=== PATIENT | male | born 1945 | race Caucasian/White ===

== ENCOUNTER → 2017-01-29 | Outpatient (CLI) | payer OTHER ==
[2017-01-29 08:05] LABS: Basophils # (auto) 0.1 uL; Basophils % (auto) 0.7 % (0.0-2.0); Eosinophils # (auto) 0.2 uL; Eosinophils % (auto) 2.5 % (0.0-7.0); Hematocrit 42.3 % (41.0-53.0); Hemoglobin 14.1 g/dL (13.5-17.5); Lymphocytes # (auto) 1.8 uL; Lymphocytes % (auto) 21.8 % (10.0-50.0); Mean Corpuscular Hemoglobin 33.1 pg (28.0-32.0); Mean Corpuscular Hgb Conc. 33.4 g/dL (32.0-36.0); Mean Corpuscular Volume 99.2 fL (80.0-100.0); Monocytes # (auto) 0.8 uL; Monocytes % (auto) 9.3 % (0.0-12.0); Neutrophils # (auto) 5.3 uL; Neutrophils % (auto) 65.7 % (37.0-80.0); Platelet Count (auto) 173 10^3/uL (140-450); White Blood Cell 8.1 10^3/uL (4.4-10.8)
[2017-01-29 08:29] LABS: Albumin 3.5 g/dL (3.4-5.0); Bilirubin, Total 0.7 mg/dL (0.2-1.0); Calcium 9.9 mg/dL (8.5-10.1); Potassium 4.6 mmol/L (3.5-5.1); Total Protein 7.1 g/dL (6.4-8.2)
== END | disposition home or self-care (01) ==
LOC: LAB 07:46
PROVIDERS: ATTEND Internal Medicine Cardiovascular Disease
DX: I25.10 Atherosclerotic heart disease of native coronary artery without angina pectoris (principal); I10 Essential (primary) hypertension; E78.00 Pure hypercholesterolemia, unspecified; Z95.0 Presence of cardiac pacemaker; R60.9 Edema, unspecified; E78.5 Hyperlipidemia, unspecified; D69.8 Other specified hemorrhagic conditions; I48.2 Chronic atrial fibrillation; I35.1 Nonrheumatic aortic (valve) insufficiency; I27.2 Other secondary pulmonary hypertension
CPT/HCPCS: 36415; 80053; 80061; 80162; 83036; 85025

== ENCOUNTER → 2017-04-03 | Outpatient (CLI) | payer OTHER ==
[2017-04-03 11:05] LABS: B-Type Natriuretic Peptide 140.77 pg/mL (0-100)
[2017-04-03 11:07] LABS: Temperature: 23.5 C (20.0-25.0)
== END | disposition home or self-care (01) ==
LOC: LAB 09:44
PROVIDERS: ATTEND Internal Medicine Cardiovascular Disease
DX: I10 Essential (primary) hypertension (principal); I25.10 Atherosclerotic heart disease of native coronary artery without angina pectoris; E78.00 Pure hypercholesterolemia, unspecified; Z95.0 Presence of cardiac pacemaker; R60.9 Edema, unspecified; E87.5 Hyperkalemia; I27.2 Other secondary pulmonary hypertension; R06.02 Shortness of breath; R05 Cough
CPT/HCPCS: 83880

== ENCOUNTER → 2017-05-30 | Outpatient (CLI) | payer OTHER ==
[2017-05-30 09:39] LABS: Basophils # (auto) 0 uL; Basophils % (auto) 0.3 % (0.0-2.0); CONDITION Y; DEFINITIVE SEE PRINTOUT; Eosinophils # (auto) 0.3 uL; Eosinophils % (auto) 4.2 % (0.0-7.0); Hematocrit 22.2 % (41.0-53.0); Hemoglobin 7.3 g/dL (13.5-17.5); Lymphocytes # (auto) 1.2 uL; Lymphocytes % (auto) 14.4 % (10.0-50.0); Mean Corpuscular Hemoglobin 29.7 pg (28.0-32.0); Mean Corpuscular Hgb Conc. 32.7 g/dL (32.0-36.0); Mean Platelet Volume 8.1 fL (7.4-10.4); Monocytes # (auto) 0.9 uL; Neutrophils # (auto) 5.6 uL; Neutrophils % (auto) 70.1 % (37.0-80.0); Platelet Count (auto) 301 10^3/uL (140-450); Red Cell Distribution Width 19.4 % (11.6-16.0)
[2017-05-30 10:04] LABS: B-Type Natriuretic Peptide 311.42 pg/mL (0-100)
[2017-05-30 10:26] LABS: Albumin 2.5 g/dL (3.4-5.0); BUN/Creatinine Ratio 22.1; Bilirubin, Total 0.6 mg/dL (0.2-1.0); Calcium 8.6 mg/dL (8.5-10.1); Total Protein 7.2 g/dL (6.4-8.2)
[2017-05-30 10:31] LABS: Potassium 2.9 mmol/L (3.5-5.1)
[2017-05-30 10:50] LABS: Platelet Estimate Adequate
[2017-05-30 10:52] LABS: Anisocytosis Slight
== END | disposition home or self-care (01) ==
LOC: LAB 09:02
PROVIDERS: ATTEND Internal Medicine Cardiovascular Disease
DX: I25.10 Atherosclerotic heart disease of native coronary artery without angina pectoris (principal); I10 Essential (primary) hypertension; E78.5 Hyperlipidemia, unspecified; R60.9 Edema, unspecified
CPT/HCPCS: 36415; 80053; 83880; 85025

== ENCOUNTER → 2017-06-03 | Outpatient (CLI) | payer OTHER ==
[2017-06-03 10:52] LABS: Potassium 3.2 mmol/L (3.5-5.1)
[2017-06-03 10:56] LABS: BUN/Creatinine Ratio 25.2; Calcium 9.2 mg/dL (8.5-10.1)
== END | disposition home or self-care (01) ==
LOC: LAB 09:09
PROVIDERS: ATTEND Internal Medicine Cardiovascular Disease
DX: E87.8 Other disorders of electrolyte and fluid balance, not elsewhere classified (principal)
CPT/HCPCS: 36415; 80048

== ENCOUNTER → 2017-06-12 | Outpatient (CLI) | payer OTHER ==
[2017-06-12 10:21] LABS: Basophils # (auto) 0 uL; Basophils % (auto) 0.4 % (0.0-2.0); CONDITION Y; DEFINITIVE SEE PRINTOUT; Eosinophils # (auto) 0.2 uL; Eosinophils % (auto) 3.5 % (0.0-7.0); Hematocrit 24.4 % (41.0-53.0); Hemoglobin 7.7 g/dL (13.5-17.5); Lymphocytes # (auto) 0.8 uL; Mean Corpuscular Hemoglobin 31.2 pg (28.0-32.0); Mean Corpuscular Hgb Conc. 31.5 g/dL (32.0-36.0); Mean Corpuscular Volume 98.9 fL (80.0-100.0); Mean Platelet Volume 8.6 fL (7.4-10.4); Monocytes # (auto) 0.7 uL; Monocytes % (auto) 10.6 % (0.0-12.0); Neutrophils # (auto) 5.2 uL; Neutrophils % (auto) 73.5 % (37.0-80.0); Platelet Count (auto) 240 10^3/uL (140-450)
[2017-06-12 10:38] LABS: Red Cell Distribution Width 23.3 % (11.6-16.0)
[2017-06-12 10:51] LABS: BUN/Creatinine Ratio 18.7; Calcium 9.1 mg/dL (8.5-10.1); Potassium 3.4 mmol/L (3.5-5.1)
[2017-06-12 11:33] LABS: Anisocytosis Slight; Hypochromia Moderate; Platelet Estimate Adequate; Polychromasia Slight
== END | disposition home or self-care (01) ==
LOC: LAB 09:25
PROVIDERS: ATTEND Internal Medicine Cardiovascular Disease
DX: I25.10 Atherosclerotic heart disease of native coronary artery without angina pectoris (principal); I10 Essential (primary) hypertension; I35.1 Nonrheumatic aortic (valve) insufficiency; E78.00 Pure hypercholesterolemia, unspecified; E78.5 Hyperlipidemia, unspecified; D69.8 Other specified hemorrhagic conditions; K26.9 Duodenal ulcer, unspecified as acute or chronic, without hemorrhage or perforation; D64.9 Anemia, unspecified
CPT/HCPCS: 36415; 80048; 82728; 83540; 83550; 85025

== ENCOUNTER → 2017-06-27 | Outpatient (CLI) | payer OTHER ==
[2017-06-27 09:59] LABS: Basophils # (auto) 0.1 uL; CONDITION Y; DEFINITIVE SEE PRINTOUT; Eosinophils # (auto) 0.2 uL; Eosinophils % (auto) 4.4 % (0.0-7.0); Hematocrit 32.7 % (41.0-53.0); Hemoglobin 10.3 g/dL (13.5-17.5); Lymphocytes # (auto) 0.8 uL; Mean Corpuscular Hemoglobin 31.5 pg (28.0-32.0); Mean Corpuscular Hgb Conc. 31.5 g/dL (32.0-36.0); Mean Corpuscular Volume 100.1 fL (80.0-100.0); Mean Platelet Volume 7.7 fL (7.4-10.4); Monocytes # (auto) 0.7 uL; Monocytes % (auto) 12.2 % (0.0-12.0); Neutrophils # (auto) 3.8 uL; Neutrophils % (auto) 68.4 % (37.0-80.0); Platelet Count (auto) 213 10^3/uL (140-450); SUSPECT SEE PRINTOUT; White Blood Cell 5.6 10^3/uL (4.4-10.8)
[2017-06-27 10:09] LABS: Red Cell Distribution Width 20.1 % (11.6-16.0)
[2017-06-27 10:32] LABS: Albumin 3.2 g/dL (3.4-5.0); BUN/Creatinine Ratio 17.4; Bilirubin, Total 0.6 mg/dL (0.2-1.0); Calcium 9.2 mg/dL (8.5-10.1); Potassium 3.9 mmol/L (3.5-5.1); Total Protein 7.7 g/dL (6.4-8.2)
[2017-06-27 12:21] LABS: Anisocytosis Slight; Ovalocytes FEW; Platelet Estimate Adequate
== END | disposition home or self-care (01) ==
LOC: LAB 09:30
PROVIDERS: ATTEND Internal Medicine Cardiovascular Disease
DX: I35.1 Nonrheumatic aortic (valve) insufficiency (principal); I48.2 Chronic atrial fibrillation; I50.32 Chronic diastolic (congestive) heart failure; D69.8 Other specified hemorrhagic conditions; D64.9 Anemia, unspecified
CPT/HCPCS: 36415; 80053; 85025

== ENCOUNTER → 2017-07-12 | Outpatient (CLI) | payer OTHER ==
[2017-07-12 09:00] LABS: Basophils # (auto) 0.1 uL; Basophils % (auto) 1.5 % (0.0-2.0); Eosinophils # (auto) 0.2 uL; Eosinophils % (auto) 4.2 % (0.0-7.0); Hematocrit 39.5 % (41.0-53.0); Hemoglobin 12.9 g/dL (13.5-17.5); Lymphocytes % (auto) 17.1 % (10.0-50.0); Mean Corpuscular Hemoglobin 32.4 pg (28.0-32.0); Mean Corpuscular Hgb Conc. 32.6 g/dL (32.0-36.0); Mean Corpuscular Volume 99.4 fL (80.0-100.0); Monocytes # (auto) 0.7 uL; Monocytes % (auto) 12.1 % (0.0-12.0); Neutrophils # (auto) 3.7 uL; Neutrophils % (auto) 65.1 % (37.0-80.0); Nucleated Red Blood Cells % 0.1 %; Platelet Count (auto) 184 10^3/uL (140-450); Red Cell Distribution Width 16.7 % (11.8-14.3); White Blood Cell 5.7 10^3/uL (4.4-10.8)
[2017-07-12 09:23] LABS: B-Type Natriuretic Peptide 209.79 pg/mL (0-100)
[2017-07-12 09:29] LABS: INR 1.61 (0.9-1.15); Partial Thromboplastin Time 31.5 sec (22.64-33.71); Prothrombin Time 17.6 sec (9.37-12.3)
== END | disposition home or self-care (01) ==
LOC: LAB 08:08
PROVIDERS: ATTEND Internal Medicine Cardiovascular Disease
DX: I48.2 Chronic atrial fibrillation (principal)
CPT/HCPCS: 36415; 83880; 85025; 85610; 85730

== ENCOUNTER → 2017-07-23 | Outpatient (CLI) | payer OTHER ==
[2017-07-23 10:13] LABS: INR 2.52 (0.9-1.15); Prothrombin Time 27.7 sec (9.37-12.3)
== END | disposition home or self-care (01) ==
LOC: LAB 09:04
PROVIDERS: ATTEND Internal Medicine Cardiovascular Disease
DX: I48.2 Chronic atrial fibrillation (principal)
CPT/HCPCS: 36415; 85610

== ENCOUNTER → 2017-11-11 | Outpatient (CLI) | payer OTHER ==
[2017-11-11 11:13] LABS: Eosinophils # (auto) 0.3 uL; Eosinophils % (auto) 3.6 % (0.0-7.0); Hemoglobin 13.5 g/dL (13.5-17.5); Lymphocytes # (auto) 1.4 uL; Mean Corpuscular Hemoglobin 35.3 pg (28.0-32.0); Monocytes # (auto) 0.8 uL
[2017-11-11 11:15] LABS: Basophils # (auto) 0.1 uL; Basophils % (auto) 1.3 % (0.0-2.0); Hematocrit 39.6 % (41.0-53.0); Lymphocytes % (auto) 16.9 % (10.0-50.0); Mean Corpuscular Hgb Conc. 34.1 g/dL (32.0-36.0); Mean Corpuscular Volume 103.4 fL (80.0-100.0); Neutrophils # (auto) 5.6 uL; Neutrophils % (auto) 68.2 % (37.0-80.0); Nucleated Red Blood Cells % 0.3 %; Platelet Count (auto) 185 10^3/uL (140-450); Red Blood Cells 3.83 10^6/uL (4.5-5.90); Red Cell Distribution Width 17.2 % (11.8-14.3); White Blood Cell 8.2 10^3/uL (4.4-10.8)
[2017-11-11 11:37] LABS: Albumin 3.6 g/dL (3.4-5.0); BUN/Creatinine Ratio 17.4; Potassium 4.1 mmol/L (3.5-5.1); Total Protein 8.1 g/dL (6.4-8.2)
== END ==
LOC: LAB 10:11
PROVIDERS: ATTEND Internal Medicine Cardiovascular Disease
DX: I10 Essential (primary) hypertension (principal); I25.10 Atherosclerotic heart disease of native coronary artery without angina pectoris; E78.00 Pure hypercholesterolemia, unspecified; E78.5 Hyperlipidemia, unspecified; D69.8 Other specified hemorrhagic conditions; I48.2 Chronic atrial fibrillation
CPT/HCPCS: 36415; 80053; 80061; 83036; 85025

== ENCOUNTER → 2017-11-28 | Outpatient (CLI) | payer OTHER ==
[2017-11-28 10:36] LABS: BUN/Creatinine Ratio 17.9; Potassium 4.4 mmol/L (3.5-5.1)
[2017-11-28 10:37] LABS: Calcium 8.9 mg/dL (8.5-10.1); Uric Acid 10.1 mg/dL (3.5-7.2)
== END | disposition home or self-care (01) ==
LOC: LAB 09:43
PROVIDERS: ATTEND Internal Medicine Cardiovascular Disease
DX: I10 Essential (primary) hypertension (principal); I25.10 Atherosclerotic heart disease of native coronary artery without angina pectoris; E78.00 Pure hypercholesterolemia, unspecified; M10.9 Gout, unspecified; E78.5 Hyperlipidemia, unspecified
CPT/HCPCS: 36415; 80048; 83880; 84550

== ENCOUNTER → 2017-12-05 | Outpatient (CLI) | payer OTHER ==
[2017-12-05 12:17] LABS: BUN/Creatinine Ratio 16.7; Calcium 9.3 mg/dL (8.5-10.1); Potassium 4.6 mmol/L (3.5-5.1)
[2017-12-06 09:02] LABS: Uric Acid 8.4 mg/dL (3.5-7.2)
== END | disposition home or self-care (01) ==
LOC: LAB 11:32
PROVIDERS: ATTEND Internal Medicine Cardiovascular Disease
DX: I25.10 Atherosclerotic heart disease of native coronary artery without angina pectoris (principal); I10 Essential (primary) hypertension; E78.5 Hyperlipidemia, unspecified; D69.8 Other specified hemorrhagic conditions; R60.9 Edema, unspecified; R07.9 Chest pain, unspecified
CPT/HCPCS: 36415; 80048; 83880; 84550

== ENCOUNTER → 2017-12-20 | Outpatient (CLI) | payer OTHER ==
[2017-12-20 11:27] LABS: Calcium 8.9 mg/dL (8.5-10.1); Potassium 4.5 mmol/L (3.5-5.1); Uric Acid 6.5 mg/dL (3.5-7.2)
== END | disposition home or self-care (01) ==
LOC: LAB 10:15
PROVIDERS: ATTEND Internal Medicine Cardiovascular Disease
DX: I11.0 Hypertensive heart disease with heart failure (principal); I50.33 Acute on chronic diastolic (congestive) heart failure; I35.1 Nonrheumatic aortic (valve) insufficiency; I25.10 Atherosclerotic heart disease of native coronary artery without angina pectoris; E78.00 Pure hypercholesterolemia, unspecified; E87.5 Hyperkalemia; D69.8 Other specified hemorrhagic conditions; I48.2 Chronic atrial fibrillation; I27.20 Pulmonary hypertension, unspecified; I73.9 Peripheral vascular disease, unspecified; D64.9 Anemia, unspecified; K26.9 Duodenal ulcer, unspecified as acute or chronic, without hemorrhage or perforation; M10.9 Gout, unspecified; R60.9 Edema, unspecified
CPT/HCPCS: 36415; 80048; 83880; 84550

== ENCOUNTER 2018-03-11 22:31 | Inpatient (IN) | payer OTHER ==
[~2018-03-11] VITALS: Ht 180.3 cm; Wt 90.9 kg
[2018-03-11] MEDS ORDERED: IPRATROPIUM BROM 0.5 MG/2.5ML INH SOL NEB ONE (23:00)
[2018-03-11] MEDS ORDERED: MORPHINE SULFATE 4 MG/ML SYR/VIAL IV ONE (23:00)
[2018-03-11] MEDS ORDERED: methylPREDNISolone SOD SUCC 125 MG/2 ML VL IV ONE (23:00)
[2018-03-11] MEDS ORDERED: ALBUTEROL SULF 2.5 MG/0.5ML(0.5%) NEB SOLN NEB ONE (23:00)
[2018-03-11] MEDS ORDERED: ONDANSETRON HCL 4 MG/2 ML VIAL IV ONE (23:00)
[2018-03-11 23:17] LABS: Basophils # (auto) 0.1 uL; Basophils % (auto) 0.8 % (0.0-2.0); Eosinophils # (auto) 0 uL; Hematocrit 41.6 % (41.0-53.0); Hemoglobin 14.2 g/dL (13.5-17.5); Lymphocytes % (auto) 6.6 % (10.0-50.0); Mean Corpuscular Hgb Conc. 34.1 g/dL (32.0-36.0); Mean Corpuscular Volume 96.9 fL (80.0-100.0); Monocytes # (auto) 1.3 uL; Monocytes % (auto) 8.5 % (0.0-12.0); Neutrophils # (auto) 12.5 uL; Neutrophils % (auto) 84.1 % (37.0-80.0); Platelet Count (auto) 147 10^3/uL (140-450); Red Blood Cells 4.29 10^6/uL (4.5-5.90); Red Cell Distribution Width 17.6 % (11.8-14.3); White Blood Cell 14.8 10^3/uL (4.4-10.8)
[2018-03-11 23:31] LABS: INR 1.42 (0.9-1.15); Partial Thromboplastin Time 33.5 sec (23.78-33.04); Prothrombin Time 14.9 sec (9.27-12.13)
[2018-03-12] MEDS ORDERED: MORPHINE SULFATE INJECTION 1 ML ONE
[2018-03-12 00:04] LABS: Albumin 2.8 g/dL (3.4-5.0); BUN/Creatinine Ratio 23.2; Calcium 8.6 mg/dL (8.5-10.1); Magnesium 1.8 mg/dL (1.6-2.6); Potassium 3.5 mmol/L (3.5-5.1)
[2018-03-12 00:09] LABS: Bilirubin, Total 1.9 mg/dL (0.2-1.0); Total Protein 7.5 g/dL (6.4-8.2)
[2018-03-12 01:37] LABS: Urine Bacteria NONE SEEN /hpf (None Seen); Urine Blood 2+ /uL (Negative); Urine Hyaline Cast FEW /lpf (0 - 2); Urine Mucus FEW (None Seen); Urine Specific Gravity 1.016 (1.001-1.035); Urine WBC 7 /hpf (0 - 3)
[2018-03-12] MEDS ORDERED: PIPERACILLIN-TAZO 4.5GM 100 ML IV ONE (04:00)
[2018-03-12] MEDS ORDERED: NITROGLYCERIN 0.4 MG SL TAB SL PRN (06:00)
[2018-03-12] MEDS ORDERED: cloNIDine HCL 0.1 MG TAB PO PRN (06:00)
[2018-03-12] MEDS ORDERED: MORPHINE SULFATE 4 MG/ML SYR/VIAL IV PRN (06:00)
[2018-03-12] MEDS ORDERED: DEXTROSE (50%) 50ML SYRG IV PRN (06:00)
[2018-03-12] MEDS ORDERED: IPRATROPIUM BROM 0.5 MG/2.5ML INH SOL NEB PRN (06:00)
[2018-03-12] MEDS ORDERED: ONDANSETRON HCL 4 MG/2 ML VIAL IV PRN (06:00)
[2018-03-12] MEDS: ACCU-CHEK COMFORT CURVE STRIP VI SCH ×3 (06:00→17:37)
[2018-03-12] MEDS ORDERED: ALBUTEROL SULF 2.5 MG/0.5ML(0.5%) NEB SOLN NEB PRN (06:00)
[2018-03-12] MEDS ORDERED: ACETAMINOPHEN 325 MG TAB PO PRN (06:00)
[2018-03-12] MEDS ORDERED: TEMAZEPAM 15 MG CAP PO PRN (06:00)
[2018-03-12] MEDS: InsuLIN REG 1unit/0.01ml Soln (100units/ml) SC SCH ×3 (06:00→17:36)
[2018-03-12] MEDS ORDERED: HYDROcodone-ACET 5/325MG TAB PO PRN (06:00)
[2018-03-12 06:30] VITALS: BP 116/77
[2018-03-12] MEDS ORDERED: AZITHROMYCIN 500MG/ 250ML 250 ML IV ONE (06:30)
[2018-03-12] MEDS ORDERED: cefTRIAXone 1GM/10ml IVPUSH 10 ML IV ONE (06:30)
[2018-03-12] MEDS: SODIUM CHLORIDE 0.9% 1,000 ML IV SCH ×2 (07:00→22:30)
[2018-03-12 08:27] VITALS: BP 116/70
[2018-03-12 08:45] VITALS: BP 116/70
[2018-03-12] MEDS: PANTOPRAZOLE 40 MG TAB PO SCH (09:25)
[2018-03-12] MEDS: METOPROLOL TARTRATE 25 MG TAB PO SCH ×2 (09:26→22:29)
[2018-03-12] MEDS ORDERED: ASPirin 81 mg TAB PO SCH (10:00)
[2018-03-12] MEDS ORDERED: ENOXAPARIN SOD 40 MG/0.4 ML SYRINGE SC SCH (10:00)
[2018-03-12] MEDS ORDERED: APIXABAN 5 MG TAB PO SCH (10:00)
[2018-03-12] MEDS ORDERED: FEBU40TA PO (10:51)
[2018-03-12] MEDS ORDERED: WARF4TAB33 PO (10:51)
[2018-03-12] MEDS ORDERED: CARV6.2551 PO (10:51)
[2018-03-12] MEDS ORDERED: SIMV-8 PO (10:51)
[2018-03-12] MEDS ORDERED: ACE3T PO (10:51)
[2018-03-12] MEDS ORDERED: POTA20TA53 PO (10:51)
[2018-03-12] MEDS ORDERED: BUME1TAB PO (10:51)
[2018-03-12] MEDS ORDERED: IPRAAER6 IN (10:51)
[2018-03-12] MEDS ORDERED: FLUT1AER3 IN (10:51)
[2018-03-12] MEDS ORDERED: METO2.5T11 PO (10:51)
[2018-03-12] MEDS ORDERED: PANT40TA2 PO (10:51)
[2018-03-12 13:00] VITALS: BP 93/61
[2018-03-12 14:07] LABS: Calcium 8.6 mg/dL (8.5-10.1)
[2018-03-12 14:09] LABS: Potassium 2.9 mmol/L (3.5-5.1)
[2018-03-12] MEDS ORDERED: POTASSIUM CHL 20 Meq TABLET PO ONE (14:15)
[2018-03-12 16:11] LABS: Carcinoembryonic Antigen 1.32 ng/mL (<5.0 OR =); Prostate Specific Antigen 0.31 ng/mL (0.0-4.0)
[2018-03-12] MEDS ORDERED: WARFARIN SODIUM 5 MG TAB PO ONE (17:00)
[2018-03-12] MEDS ORDERED: BACL10TA PO (17:05)
[2018-03-12] MEDS ORDERED: TEMA30CA PO (17:05)
[2018-03-12 17:08] VITALS: BP 112/64
[2018-03-12 22:00] VITALS: BP 112/72
[2018-03-12] MEDS: ATORVASTATIN 20 MG TAB PO SCH (22:28)
[2018-03-13] MEDS: InsuLIN REG 1unit/0.01ml Soln (100units/ml) SC SCH ×4 (00:35→17:39)
[2018-03-13] MEDS: ACCU-CHEK COMFORT CURVE STRIP VI SCH ×4 (00:35→17:39)
[2018-03-13 05:00] VITALS: BP 97/57
[2018-03-13 06:44] LABS: Basophils # (auto) 0 uL; Basophils % (auto) 0.1 % (0.0-2.0); Eosinophils # (auto) 0 uL; Hematocrit 37.3 % (41.0-53.0); Hemoglobin 12.7 g/dL (13.5-17.5); Lymphocytes # (auto) 0.3 uL; Lymphocytes % (auto) 2.3 % (10.0-50.0); Mean Corpuscular Hemoglobin 33.4 pg (28.0-32.0); Mean Corpuscular Hgb Conc. 33.9 g/dL (32.0-36.0); Mean Corpuscular Volume 98.3 fL (80.0-100.0); Monocytes # (auto) 0.5 uL; Monocytes % (auto) 3.9 % (0.0-12.0); Neutrophils # (auto) 12.1 uL; Neutrophils % (auto) 93.7 % (37.0-80.0); Platelet Count (auto) 121 10^3/uL (140-450); Red Cell Distribution Width 17.4 % (11.8-14.3); White Blood Cell 12.9 10^3/uL (4.4-10.8)
[2018-03-13 06:56] LABS: INR 1.55 (0.9-1.15); Prothrombin Time 16.2 sec (9.27-12.13)
[2018-03-13 07:03] LABS: Potassium 3.5 mmol/L (3.5-5.1)
[2018-03-13 07:08] LABS: Albumin 2.4 g/dL (3.4-5.0); BUN/Creatinine Ratio 34.5; Calcium 9.1 mg/dL (8.5-10.1)
[2018-03-13 07:10] LABS: Bilirubin, Total 1.3 mg/dL (0.2-1.0); Total Protein 7.1 g/dL (6.4-8.2)
[2018-03-13 09:00] VITALS: BP 113/70
[2018-03-13] MEDS: cefTRIAXone 1GM/10ml IVPUSH 10 ML IV SCH (09:18)
[2018-03-13] MEDS: AZITHROMYCIN 500MG/ 250ML 250 ML IV SCH (09:18)
[2018-03-13] MEDS: ASPirin 81 mg TAB PO SCH (09:36)
[2018-03-13] MEDS: PANTOPRAZOLE 40 MG TAB PO SCH (09:37)
[2018-03-13] MEDS: METOPROLOL TARTRATE 25 MG TAB PO SCH ×2 (10:00→22:14)
[2018-03-13] MEDS: ACETYLCYSTEINE 10 %(100MG/ML) SOL 4ML NEB SCH ×2 (12:25→20:06)
[2018-03-13] MEDS: IPRATROPIUM BROM 0.5 MG/2.5ML INH SOL NEB SCH ×2 (12:25→20:06)
[2018-03-13] MEDS: ALBUTEROL SULF 2.5 MG/0.5ML(0.5%) NEB SOLN NEB SCH ×2 (12:25→20:06)
[2018-03-13 13:00] VITALS: BP 127/76
[2018-03-13 17:00] VITALS: BP 114/67
[2018-03-13] MEDS ORDERED: WARFARIN SODIUM 5 MG TAB PO ONE (17:00)
[2018-03-13] MEDS: ATORVASTATIN 20 MG TAB PO SCH (22:14)
[2018-03-14] MEDS: ACCU-CHEK COMFORT CURVE STRIP VI SCH ×2 (00:32→06:25)
[2018-03-14] MEDS: ALBUTEROL SULF 2.5 MG/0.5ML(0.5%) NEB SOLN NEB SCH ×2 (01:30→07:03)
[2018-03-14] MEDS: IPRATROPIUM BROM 0.5 MG/2.5ML INH SOL NEB SCH ×2 (01:30→07:03)
[2018-03-14 05:00] VITALS: BP 114/76
[2018-03-14] MEDS: InsuLIN REG 1unit/0.01ml Soln (100units/ml) SC SCH ×2 (06:00)
[2018-03-14 06:04] LABS: INR 2.16 (0.9-1.15); Partial Thromboplastin Time 32.3 sec (23.78-33.04); Prothrombin Time 22.1 sec (9.27-12.13)
[2018-03-14 06:06] LABS: Basophils # (auto) 0 uL; Basophils % (auto) 0.1 % (0.0-2.0); Eosinophils # (auto) 0 uL; Hematocrit 35.7 % (41.0-53.0); Hemoglobin 12.3 g/dL (13.5-17.5); Lymphocytes # (auto) 0.5 uL; Lymphocytes % (auto) 5.6 % (10.0-50.0); Mean Corpuscular Hemoglobin 33.7 pg (28.0-32.0); Mean Corpuscular Hgb Conc. 34.5 g/dL (32.0-36.0); Mean Corpuscular Volume 97.7 fL (80.0-100.0); Monocytes # (auto) 0.5 uL; Monocytes % (auto) 6.4 % (0.0-12.0); Neutrophils # (auto) 7.5 uL; Neutrophils % (auto) 87.9 % (37.0-80.0); Nucleated Red Blood Cells % 0.1 %; Platelet Count (auto) 116 10^3/uL (140-450); Red Blood Cells 3.65 10^6/uL (4.5-5.90); Red Cell Distribution Width 17.2 % (11.8-14.3); White Blood Cell 8.5 10^3/uL (4.4-10.8)
[2018-03-14 06:09] LABS: BUN/Creatinine Ratio 36.9; Potassium 3.7 mmol/L (3.5-5.1)
[2018-03-14] MEDS: ACETYLCYSTEINE 10 %(100MG/ML) SOL 4ML NEB SCH (07:03)
[2018-03-14 09:00] VITALS: BP 121/72
[2018-03-14] MEDS: AZITHROMYCIN 500MG/ 250ML 250 ML IV SCH (09:45)
[2018-03-14] MEDS: cefTRIAXone 1GM/10ml IVPUSH 10 ML IV SCH (09:45)
[2018-03-14] MEDS: ASPirin 81 mg TAB PO SCH (09:45)
[2018-03-14] MEDS: PANTOPRAZOLE 40 MG TAB PO SCH (09:46)
[2018-03-14] MEDS: METOPROLOL TARTRATE 25 MG TAB PO SCH (09:46)
[2018-03-14 10:44] VITALS: BP 121/72
[2018-03-14] MEDS ORDERED: WARFARIN SODIUM 2 MG TAB PO ONE (17:00)
== END 2018-03-14 12:00 | disposition home or self-care (01) | DRG 193 ==
LOC: EDBD 22:31 → ER 22:39 → TELE 22:40 → TELE-EAST 03-12 08:25
PROVIDERS: ADMIT Nurse Practitioner; ATTEND Family Medicine
DX: J18.1 Lobar pneumonia, unspecified organism (principal); J96.00 Acute respiratory failure, unspecified whether with hypoxia or hypercapnia; J44.0 Chronic obstructive pulmonary disease with (acute) lower respiratory infection; D68.59 Other primary thrombophilia; N39.0 Urinary tract infection, site not specified; E11.22 Type 2 diabetes mellitus with diabetic chronic kidney disease; I48.2 Chronic atrial fibrillation; N18.3 Chronic kidney disease, stage 3 (moderate); E78.5 Hyperlipidemia, unspecified; I25.10 Atherosclerotic heart disease of native coronary artery without angina pectoris; I12.9 Hypertensive chronic kidney disease with stage 1 through stage 4 chronic kidney disease, or unspecified chronic kidney disease; M54.5 Low back pain; G89.29 Other chronic pain; K76.0 Fatty (change of) liver, not elsewhere classified; Z95.1 Presence of aortocoronary bypass graft
CPT/HCPCS: 36415; 71045; 71046; 74176; 76705; 80048; 80053; 81001; 82378; 82962; 83036; 83605; 83735; 83880; 84153; 84484; 85025; 85610; 85730; 87040; 93005; 93306; 94640; 94761; 96365; 96367; 96375; 99291; J1815; J2270; J2405; J2543

== ENCOUNTER → 2018-07-29 | Outpatient (CLI) | payer OTHER ==
[~2018-07-29] MED LIST: ACE3T PO; BACL10TA PO; BUME1TAB PO; CARV6.2551 PO; FEBU40TA PO; FLUT1AER3 IN; IPRAAER6 IN; METO2.5T11 PO; PANT40TA2 PO; POTA20TA53 PO; SIMV-8 PO; TEMA30CA PO; WARF4TAB33 PO
[2018-07-29 10:44] LABS: Basophils # (auto) 0.1 uL; Basophils % (auto) 1.2 % (0.0-2.0); Eosinophils # (auto) 0.2 uL; Eosinophils % (auto) 3.3 % (0.0-7.0); Hematocrit 40.3 % (41.0-53.0); Hemoglobin 13.4 g/dL (13.5-17.5); Lymphocytes % (auto) 17.4 % (10.0-50.0); Mean Corpuscular Hemoglobin 32.4 pg (28.0-32.0); Mean Corpuscular Hgb Conc. 33.3 g/dL (32.0-36.0); Mean Corpuscular Volume 97.3 fL (80.0-100.0); Monocytes # (auto) 0.6 uL; Monocytes % (auto) 10.1 % (0.0-12.0); Nucleated Red Blood Cells % 0.1 %; Platelet Count (auto) 120 10^3/uL (140-450); Red Blood Cells 4.14 10^6/uL (4.5-5.90); Red Cell Distribution Width 17.5 % (11.8-14.3); White Blood Cell 5.9 10^3/uL (4.4-10.8)
[2018-07-29 12:16] LABS: BUN/Creatinine Ratio 18.5; Calcium 8.8 mg/dL (8.5-10.1); Potassium 4.7 mmol/L (3.5-5.1)
== END | disposition home or self-care (01) ==
LOC: LAB 09:56
PROVIDERS: ATTEND Internal Medicine Cardiovascular Disease
DX: I10 Essential (primary) hypertension (principal); I25.10 Atherosclerotic heart disease of native coronary artery without angina pectoris; D64.9 Anemia, unspecified; E87.5 Hyperkalemia
CPT/HCPCS: 36415; 80048; 85025

== ENCOUNTER → 2018-11-14 | Outpatient (CLI) | payer OTHER ==
[2018-11-14 10:14] LABS: Basophils # (auto) 0.1 uL; Basophils % (auto) 2.3 % (0.0-2.0); Eosinophils # (auto) 0.2 uL; Eosinophils % (auto) 3.4 % (0.0-7.0); Hematocrit 44.9 % (41.0-53.0); Hemoglobin 15.2 g/dL (13.5-17.5); Lymphocytes # (auto) 1.1 uL; Lymphocytes % (auto) 19.5 % (10.0-50.0); Mean Corpuscular Hemoglobin 33.1 pg (28.0-32.0); Mean Corpuscular Hgb Conc. 33.8 g/dL (32.0-36.0); Monocytes # (auto) 0.6 uL; Monocytes % (auto) 10.2 % (0.0-12.0); Neutrophils # (auto) 3.6 uL; Neutrophils % (auto) 64.6 % (37.0-80.0); Nucleated Red Blood Cells % 0.1 %; Platelet Count (auto) 131 10^3/uL (140-450); Red Blood Cells 4.58 10^6/uL (4.5-5.90); Red Cell Distribution Width 16.5 % (11.8-14.3); White Blood Cell 5.6 10^3/uL (4.4-10.8)
[2018-11-14 11:12] LABS: Alanine Aminotransferase 20 U/L (16-61); Albumin 3.9 g/dL (3.4-5.0); Anion Gap 3 (5-15); Aspartate Aminotransferase 24 U/L (15-37); BUN/Creatinine Ratio 15.8; Blood Urea Nitrogen 22 mg/dL (7-18); Calcium 9.4 mg/dL (8.5-10.1); Carbon Dioxide 31 mmol/L (21-32); Chloride 107 mmol/L (98-107); GFR Non-African American 53 mL/min; Glucose 113 mg/dL (74-106); Potassium 4.9 mmol/L (3.5-5.1); Sodium 141 mmol/L (136-145)
[2018-11-14 11:16] LABS: Alkaline Phosphatase 139 U/L (45-117); Bilirubin, Total 1.2 mg/dL (0.2-1.0); Cholesterol 130 mg/dL (< 200); HDL Cholesterol 41 mg/dL (40-59); LDL Cholesterol 77 mg/dL (< 100); Total Protein 7.9 g/dL (6.4-8.2); Triglycerides 118 mg/dL (< 150)
[2018-11-14 11:48] LABS: GFR African American > 60 mL/min
== END | disposition home or self-care (01) ==
LOC: LAB 09:53
PROVIDERS: ATTEND Internal Medicine Cardiovascular Disease
DX: I11.0 Hypertensive heart disease with heart failure (principal); I50.33 Acute on chronic diastolic (congestive) heart failure; I25.10 Atherosclerotic heart disease of native coronary artery without angina pectoris; E78.00 Pure hypercholesterolemia, unspecified; E87.5 Hyperkalemia; D69.8 Other specified hemorrhagic conditions; I48.2 Chronic atrial fibrillation; D64.9 Anemia, unspecified; I35.1 Nonrheumatic aortic (valve) insufficiency; I27.20 Pulmonary hypertension, unspecified; I73.9 Peripheral vascular disease, unspecified; M10.9 Gout, unspecified
CPT/HCPCS: 36415; 80053; 80061; 83036; 84550; 85025

== ENCOUNTER → 2019-02-26 | Outpatient (CLI) | payer OTHER ==
[2019-02-26 12:06] LABS: Calcium 9.4 mg/dL (8.5-10.1); Potassium 4.8 mmol/L (3.5-5.1)
[2019-02-26 12:10] LABS: BUN/Creatinine Ratio 16.6; Uric Acid 5.2 mg/dL (3.5-7.2)
== END | disposition home or self-care (01) ==
LOC: LAB 10:42
PROVIDERS: ATTEND Internal Medicine Cardiovascular Disease
DX: I11.0 Hypertensive heart disease with heart failure (principal); I50.33 Acute on chronic diastolic (congestive) heart failure; M10.9 Gout, unspecified; R06.02 Shortness of breath; R07.9 Chest pain, unspecified; R60.9 Edema, unspecified
CPT/HCPCS: 36415; 80048; 83880; 84550

== ENCOUNTER → 2019-06-01 | Outpatient (CLI) | payer OTHER ==
[~2019-06-01] MED LIST changes: -BUME1TAB PO; +BUME1TAB3 PO; +POTA-220 PO; -POTA20TA53 PO
[2019-06-01 11:37] LABS: Basophils # (auto) 0.1 uL; Basophils % (auto) 1.1 % (0.0-2.0); Eosinophils # (auto) 0.2 uL; Eosinophils % (auto) 3.7 % (0.0-7.0); Hematocrit 43.7 % (41.0-53.0); Hemoglobin 14.9 g/dL (13.5-17.5); Lymphocytes # (auto) 1.2 uL; Lymphocytes % (auto) 20.4 % (10.0-50.0); Mean Corpuscular Hemoglobin 33.5 pg (28.0-32.0); Mean Corpuscular Volume 98.6 fL (80.0-100.0); Monocytes # (auto) 0.6 uL; Monocytes % (auto) 10.5 % (0.0-12.0); Neutrophils # (auto) 3.7 uL; Neutrophils % (auto) 64.3 % (37.0-80.0); Nucleated Red Blood Cells % 0.1 %; Platelet Count (auto) 132 10^3/uL (140-450); Red Blood Cells 4.44 10^6/uL (4.5-5.90); Red Cell Distribution Width 16.3 % (11.8-14.3); White Blood Cell 5.7 10^3/uL (4.4-10.8)
[2019-06-01 11:56] LABS: Albumin 3.9 g/dL (3.4-5.0); BUN/Creatinine Ratio 14.9; Calcium 9.6 mg/dL (8.5-10.1); Uric Acid 2.9 mg/dL (3.5-7.2)
[2019-06-01 12:01] LABS: Bilirubin, Total 1.1 mg/dL (0.2-1.0); Total Protein 8.1 g/dL (6.4-8.2)
== END | disposition home or self-care (01) ==
LOC: LAB 11:01
PROVIDERS: ATTEND Internal Medicine Cardiovascular Disease
DX: I25.10 Atherosclerotic heart disease of native coronary artery without angina pectoris (principal); I11.0 Hypertensive heart disease with heart failure; I50.33 Acute on chronic diastolic (congestive) heart failure; E78.00 Pure hypercholesterolemia, unspecified; R60.9 Edema, unspecified; E87.5 Hyperkalemia; D69.8 Other specified hemorrhagic conditions; I48.2 Chronic atrial fibrillation; I27.20 Pulmonary hypertension, unspecified; R06.02 Shortness of breath; R07.9 Chest pain, unspecified; I73.9 Peripheral vascular disease, unspecified; D64.9 Anemia, unspecified; R26.9 Unspecified abnormalities of gait and mobility; M10.9 Gout, unspecified; G47.00 Insomnia, unspecified; I34.0 Nonrheumatic mitral (valve) insufficiency; R79.9 Abnormal finding of blood chemistry, unspecified
CPT/HCPCS: 36415; 80053; 80061; 83036; 84443; 84550; 85025

== ENCOUNTER → 2019-11-27 | Outpatient (CLI) | payer OTHER ==
[2019-11-27 10:55] LABS: Basophils # (auto) 0.1 uL; Basophils % (auto) 1.4 % (0.0-2.0); Eosinophils # (auto) 0.3 uL; Eosinophils % (auto) 5.2 % (0.0-7.0); Hematocrit 46.2 % (41.0-53.0); Hemoglobin 15.6 g/dL (13.5-17.5); Lymphocytes # (auto) 1.2 uL; Lymphocytes % (auto) 21.1 % (10.0-50.0); Mean Corpuscular Hgb Conc. 33.7 g/dL (32.0-36.0); Mean Corpuscular Volume 100.9 fL (80.0-100.0); Monocytes # (auto) 0.6 uL; Monocytes % (auto) 10.8 % (0.0-12.0); Neutrophils # (auto) 3.4 uL; Neutrophils % (auto) 61.5 % (37.0-80.0); Nucleated Red Blood Cells % 0.1 %; Platelet Count (auto) 103 10^3/uL (140-450); Red Blood Cells 4.58 10^6/uL (4.5-5.90); Red Cell Distribution Width 15.6 % (11.8-14.3); White Blood Cell 5.5 10^3/uL (4.4-10.8)
[2019-11-27 11:23] LABS: Albumin 3.5 g/dL (3.4-5.0); Calcium 9.2 mg/dL (8.5-10.1); Potassium 4.4 mmol/L (3.5-5.1)
[2019-11-27 11:29] LABS: Bilirubin, Total 1.1 mg/dL (0.2-1.0); Total Protein 7.7 g/dL (6.4-8.2)
== END | disposition home or self-care (01) ==
LOC: LAB 10:40
PROVIDERS: ATTEND Internal Medicine Cardiovascular Disease
DX: I11.0 Hypertensive heart disease with heart failure (principal); I50.33 Acute on chronic diastolic (congestive) heart failure; R06.02 Shortness of breath; I25.10 Atherosclerotic heart disease of native coronary artery without angina pectoris; E78.00 Pure hypercholesterolemia, unspecified; E87.5 Hyperkalemia; D69.8 Other specified hemorrhagic conditions; I48.20 Chronic atrial fibrillation, unspecified; I27.21 Secondary pulmonary arterial hypertension; R07.9 Chest pain, unspecified; I73.9 Peripheral vascular disease, unspecified; K26.9 Duodenal ulcer, unspecified as acute or chronic, without hemorrhage or perforation; D64.9 Anemia, unspecified; M10.9 Gout, unspecified; G47.00 Insomnia, unspecified; I34.0 Nonrheumatic mitral (valve) insufficiency; R79.9 Abnormal finding of blood chemistry, unspecified
CPT/HCPCS: 36415; 80053; 80061; 83036; 83880; 84443; 85025

== ENCOUNTER → 2020-03-21 | Outpatient (CLI) | payer OTHER ==
[2020-03-21 09:59] LABS: Basophils # (auto) 0.1 10 ^3/uL (0-0.2); Lymphocytes # (auto) 1.1 10 ^3/uL (0.4-5.4); Nucleated Red Blood Cells % 0.1 %
[2020-03-21 10:02] LABS: Basophils % (auto) 1.2 % (0.0-2.0); Eosinophils # (auto) 0.2 10 ^3/uL (0-0.8); Eosinophils % (auto) 4.1 % (0.0-7.0); Hematocrit 44.1 % (41.0-53.0); Mean Corpuscular Hemoglobin 35.3 pg (28.0-32.0); Mean Corpuscular Volume 103.8 fL (80.0-100.0); Monocytes # (auto) 0.5 10 ^3/uL (0-1.3); Monocytes % (auto) 9.2 % (0.0-12.0); Neutrophils # (auto) 3.7 10 ^3/uL (1.6-8.6); Neutrophils % (auto) 66.5 % (37.0-80.0); Platelet Count (auto) 115 10^3/uL (140-450); Red Blood Cells 4.25 10^6/uL (4.5-5.90); Red Cell Distribution Width 15.7 % (11.8-14.3); White Blood Cell 5.6 10^3/uL (4.4-10.8)
[2020-03-21 10:15] LABS: Calcium 9.5 mg/dL (8.5-10.1); Potassium 3.7 mmol/L (3.5-5.1)
[2020-03-21 10:17] LABS: BUN/Creatinine Ratio 15.8
== END | disposition home or self-care (01) ==
LOC: LAB 09:38
PROVIDERS: ATTEND Internal Medicine Cardiovascular Disease
DX: I50.33 Acute on chronic diastolic (congestive) heart failure (principal); R06.02 Shortness of breath; E87.5 Hyperkalemia; R60.9 Edema, unspecified; E78.00 Pure hypercholesterolemia, unspecified; R79.9 Abnormal finding of blood chemistry, unspecified; I10 Essential (primary) hypertension
CPT/HCPCS: 36415; 80048; 83880; 85025

== ENCOUNTER → 2020-03-25 | Outpatient (CLI) | payer OTHER ==
[2020-03-25 10:08] LABS: Calcium 9.4 mg/dL (8.5-10.1); Potassium 4.4 mmol/L (3.5-5.1)
[2020-03-25 10:10] LABS: BUN/Creatinine Ratio 16.6
== END | disposition home or self-care (01) ==
LOC: LAB 09:24
PROVIDERS: ATTEND Internal Medicine Cardiovascular Disease
DX: I11.0 Hypertensive heart disease with heart failure (principal); R06.02 Shortness of breath; I50.33 Acute on chronic diastolic (congestive) heart failure
CPT/HCPCS: 36415; 80048; 83880

== ENCOUNTER → 2020-04-06 | Outpatient (CLI) | payer OTHER ==
[2020-04-06 09:51] LABS: Basophils # (auto) 0 10 ^3/uL (0-0.2); Basophils % (auto) 0.4 % (0.0-2.0); Eosinophils # (auto) 0.3 10 ^3/uL (0-0.8); Hemoglobin 15.8 g/dL (13.5-17.5); Monocytes # (auto) 0.7 10 ^3/uL (0-1.3); Red Cell Distribution Width 15.2 % (11.8-14.3)
[2020-04-06 09:53] LABS: Eosinophils % (auto) 4.7 % (0.0-7.0); Lymphocytes # (auto) 1.2 10 ^3/uL (0.4-5.4); Lymphocytes % (auto) 18.7 % (10.0-50.0); Mean Corpuscular Hemoglobin 35.4 pg (28.0-32.0); Mean Corpuscular Hgb Conc. 34.3 g/dL (32.0-36.0); Mean Corpuscular Volume 103.4 fL (80.0-100.0); Monocytes % (auto) 10.7 % (0.0-12.0); Neutrophils # (auto) 4.3 10 ^3/uL (1.6-8.6); Neutrophils % (auto) 65.5 % (37.0-80.0); Nucleated Red Blood Cells % 0.1 %; Platelet Count (auto) 121 10^3/uL (140-450); Red Blood Cells 4.45 10^6/uL (4.5-5.90); White Blood Cell 6.6 10^3/uL (4.4-10.8)
[2020-04-06 10:13] LABS: BUN/Creatinine Ratio 14.5; Calcium 9.5 mg/dL (8.5-10.1); Potassium 4.2 mmol/L (3.5-5.1)
== END | disposition home or self-care (01) ==
LOC: LAB 09:31
PROVIDERS: ATTEND Internal Medicine Cardiovascular Disease
DX: I11.0 Hypertensive heart disease with heart failure (principal); I50.33 Acute on chronic diastolic (congestive) heart failure; I35.1 Nonrheumatic aortic (valve) insufficiency; I73.9 Peripheral vascular disease, unspecified; I25.10 Atherosclerotic heart disease of native coronary artery without angina pectoris; I48.20 Chronic atrial fibrillation, unspecified; I27.29 Other secondary pulmonary hypertension; R06.02 Shortness of breath; E78.5 Hyperlipidemia, unspecified; E78.00 Pure hypercholesterolemia, unspecified; R60.9 Edema, unspecified; D69.8 Other specified hemorrhagic conditions; R07.9 Chest pain, unspecified; D64.9 Anemia, unspecified; K26.9 Duodenal ulcer, unspecified as acute or chronic, without hemorrhage or perforation; M10.9 Gout, unspecified; Z95.0 Presence of cardiac pacemaker
CPT/HCPCS: 36415; 80048; 85025

== ENCOUNTER → 2020-09-12 | Outpatient (CLI) | payer OTHER ==
[2020-09-12 10:28] LABS: Basophils # (auto) 0.1 10 ^3/uL (0-0.2); Eosinophils # (auto) 0.2 10 ^3/uL (0-0.8); Nucleated Red Blood Cells % 0.1 %
[2020-09-12 10:29] LABS: Hematocrit 39.7 % (41.0-53.0); Hemoglobin 13.4 g/dL (13.5-17.5); Lymphocytes % (auto) 17.5 % (10.0-50.0); Mean Corpuscular Hemoglobin 35.7 pg (28.0-32.0); Mean Corpuscular Hgb Conc. 33.6 g/dL (32.0-36.0); Mean Corpuscular Volume 106.2 fL (80.0-100.0); Monocytes # (auto) 0.6 10 ^3/uL (0-1.3); Monocytes % (auto) 10.6 % (0.0-12.0); Neutrophils # (auto) 3.7 10 ^3/uL (1.6-8.6); Neutrophils % (auto) 66.9 % (37.0-80.0); Platelet Count (auto) 106 10^3/uL (140-450); Red Blood Cells 3.74 10^6/uL (4.5-5.90); White Blood Cell 5.5 10^3/uL (4.4-10.8)
[2020-09-12 11:24] LABS: Albumin 3.5 g/dL (3.4-5.0); BUN/Creatinine Ratio 12.2; Bilirubin, Total 1.6 mg/dL (0.2-1.0); Calcium 9.2 mg/dL (8.5-10.1); Potassium 3.9 mmol/L (3.5-5.1); Total Protein 7.3 g/dL (6.4-8.2); Uric Acid 1.7 mg/dL (3.5-7.2)
== END | disposition home or self-care (01) ==
LOC: LAB 10:00
PROVIDERS: ATTEND Internal Medicine Cardiovascular Disease
DX: I50.20 Unspecified systolic (congestive) heart failure (principal); R06.02 Shortness of breath; I10 Essential (primary) hypertension; E79.0 Hyperuricemia without signs of inflammatory arthritis and tophaceous disease
CPT/HCPCS: 36415; 80053; 80061; 83880; 84550; 85025

== ENCOUNTER → 2020-11-21 | Outpatient (CLI) | payer OTHER ==
[2020-11-21 12:20] LABS: Basophils # (auto) 0.1 10 ^3/uL (0-0.2); Eosinophils # (auto) 0.3 10 ^3/uL (0-0.8); Lymphocytes # (auto) 1.1 10 ^3/uL (0.4-5.4); Mean Corpuscular Hemoglobin 35.5 pg (28.0-32.0); Monocytes # (auto) 0.7 10 ^3/uL (0-1.3); Neutrophils # (auto) 3.6 10 ^3/uL (1.6-8.6)
[2020-11-21 12:22] LABS: Basophils % (auto) 1.2 % (0.0-2.0); Eosinophils % (auto) 5.5 % (0.0-7.0); Hematocrit 38.2 % (41.0-53.0); Mean Corpuscular Hgb Conc. 34.1 g/dL (32.0-36.0); Monocytes % (auto) 12.1 % (0.0-12.0); Neutrophils % (auto) 62.2 % (37.0-80.0); Nucleated Red Blood Cells % 0.1 %; Platelet Count (auto) 110 10^3/uL (140-450); Red Blood Cells 3.67 10^6/uL (4.5-5.90); White Blood Cell 5.8 10^3/uL (4.4-10.8)
[2020-11-21 12:39] LABS: INR 1.69 (0.9-1.15); Partial Thromboplastin Time 33.5 sec (23.0-31.2)
[2020-11-21 12:52] LABS: Urine Bacteria NONE SEEN /hpf (None Seen); Urine Blood TRACE /uL (Negative); Urine Specific Gravity 1.007 (1.001-1.035); Urine WBC 2 /hpf (0 - 3)
[2020-11-21 13:44] LABS: Albumin 3.7 g/dL (3.4-5.0); Calcium 9.2 mg/dL (8.5-10.1); Potassium 3.7 mmol/L (3.5-5.1)
[2020-11-21 13:48] LABS: BUN/Creatinine Ratio 14.1; Bilirubin, Total 1.4 mg/dL (0.2-1.0)
== END | disposition home or self-care (01) ==
LOC: LAB 12:09
PROVIDERS: ATTEND Internal Medicine Cardiovascular Disease
DX: Z01.818 Encounter for other preprocedural examination (principal); I10 Essential (primary) hypertension; R06.02 Shortness of breath; R79.9 Abnormal finding of blood chemistry, unspecified; N39.0 Urinary tract infection, site not specified; Z79.01 Long term (current) use of anticoagulants; Z01.810 Encounter for preprocedural cardiovascular examination
CPT/HCPCS: 36415; 80053; 81001; 85025; 85610; 85730

== ENCOUNTER → 2021-05-09 | Outpatient (CLI) | payer OTHER ==
[~2021-05-09] MED LIST changes: +METO2.5T PO; -METO2.5T11 PO
[2021-05-09 12:25] LABS: Calcium 9.1 mg/dL (8.5-10.1); Potassium 3.4 mmol/L (3.5-5.1)
[2021-05-09 12:27] LABS: BUN/Creatinine Ratio 13.5
== END | disposition home or self-care (01) ==
LOC: LAB 10:58
PROVIDERS: ATTEND Internal Medicine Cardiovascular Disease
DX: R06.02 Shortness of breath (principal); R79.9 Abnormal finding of blood chemistry, unspecified
CPT/HCPCS: 36415; 80048; 83880